=== PATIENT | male | born 1955 | race Caucasian/White ===

== ENCOUNTER 2018-10-31 09:04 | Emergency (ER) | payer SELFPAY ==
[~2018-10-31] VITALS: Ht 165.1 cm; Wt 82.0 kg
[2018-10-31 09:07] VITALS: BP 176/92
[2018-10-31] MEDS ORDERED: ENAL2.5 PO (09:08)
[2018-10-31] MEDS ORDERED: METF-445 PO (09:08)
== END 2018-10-31 10:31 | disposition left against medical advice (07) ==
LOC: EMS 09:06
DX: R11.2 Nausea with vomiting, unspecified (principal); R42 Dizziness and giddiness; Z53.21 Procedure and treatment not carried out due to patient leaving prior to being seen by health care provider